=== PATIENT | male | born 1985 ===

== ENCOUNTER 2017-07-08 21:07 | Emergency (ER) | payer SELFPAY ==
[2017-07-08 21:32] VITALS: BP 125/83; PULSE 87; RESP 16; TEMP 98.4; O2SAT 98
== END 2017-07-08 22:00 | disposition left against medical advice (07) ==
LOC: C.ER 21:07
DX: M79.89 Other specified soft tissue disorders (principal); Z02.9 Encounter for administrative examinations, unspecified